=== PATIENT | female | born 1950 | race Caucasian/White ===

== ENCOUNTER 2021-01-27 11:09 | Emergency (ER) | payer MEDICARE, OTHER ==
[~2021-01-27 11:09] MED LIST: FLONASE 0.05% N16 GM; FLOVENT 110 MC7.9 GM INH; LISINOPRIL20 MG PO; LOPRESSOR 25 MG25 MG PO; PERCOCET 5-3251 EACH PO; PRAVACHOL20 MG PO; PRILOSEC20 MG PO; TRICOR145 MG PO; ZESTRIL40 MG PO
[2021-01-27] MEDS ORDERED: IBUPROFEN600 MG PO (15:48)
== END 2021-01-27 16:06 | disposition home or self-care (01) ==
LOC: ER1 11:09
DX: S80.01XA Contusion of right knee, initial encounter (principal); I10 Essential (primary) hypertension; E78.5 Hyperlipidemia, unspecified; W19.XXXA Unspecified fall, initial encounter
CPT/HCPCS: 73564; 73590; 93971; 99284

== ENCOUNTER → 2021-02-07 | Outpatient (CLI) | payer MEDICARE ==
[~2021-02-07] MED LIST changes: +IBUPROFEN600 MG PO
== END ==
LOC: MAMO 13:59
DX: Z12.31 Encounter for screening mammogram for malignant neoplasm of breast (principal)
CPT/HCPCS: 77063; 77067

== ENCOUNTER → 2021-03-08 | Outpatient (CLI) | payer MEDICARE | LOC: EXRD 02-07 15:00 | DX: Z13.820 Encounter for screening for osteoporosis (principal); R93.6 Abnormal findings on diagnostic imaging of limbs; M85.852 Other specified disorders of bone density and structure, left thigh | CPT/HCPCS: 77080 ==